=== PATIENT | female | born 1945 | race Caucasian/White ===

== ENCOUNTER 2018-02-14 08:36 | Observation (INO) | payer OTHER ==
[2018-02-14] VITALS (15 sets, daily range): BP systolic 96–166; BP diastolic 58–70
[~2018-02-14] VITALS: Ht 167.6 cm; Wt 97.5 kg
[~2018-02-14 08:36] MED LIST: ALEVE220 MG PO; APAP650 PO; ASPIRIN325 PO; CENTRUM SILVER1 EAC4 PO; COLACE100 MG PO; FERRO-TIME325 MG PO; GEMFIBROZIL 60600 M1 PO; HYDROCODON-ACE1 EAC2 PO; HYDROCODONE-APA1 TA1 PO; IBUPROFEN 200200 M1 PO; LEVOTHYROXIN0.088 MG PO; LEVOXYL88 MCG PO; LISINOPRIL40 MG PO; LOPID600 MG PO; LOPRESSOR50 PO; LOSARTAN-HCTZ1 EAC1 PO; METAMUCIL PAC1 UDPKT PO; MOM PO; Metoprolol Tartrate PO; NEURONTIN 300300 M1 PO; NORVASC 5 MG TAB5 MG PO; NORVASC5 MG PO; ONE-A-DAY WOMENS PO; OXYCODONE20 MG/1 M1 PO; PAIN RELIEF PM1 EAC2 PO; PRINIVIL40 MG PO; PROTONIX40 M1 PO; TRAMADOL-ACETA1 EACH PO; ULTRACET TABLET1 TAB PO; XARELTO10 M1 PO
[2018-02-14 09:10] LABS: HEMATOCRIT 37.4 % (37.0-47.0); HEMOGLOBIN 12.8 gm/dL (12.0-15.0); MCH 30.7 pg (26.0-34.0); MCHC 34.2 g/dL (28.0-37.0); MCV 89.9 fL (80.0-100.0); RBC 4.16 mil/uL (4.20-5.00); RDW-CV 13.2 % (10.5-14.5); WBC 6.8 thou/uL (4.0-11.0)
[2018-02-14] MEDS ORDERED: NITROGLYCERIN0.4 MG SUBLING (09:13)
[2018-02-14 09:23] LABS: ANION GAP 7 mmol/L (7-16); BUN 24 mg/dL (7-18); CHLORIDE 105 mmol/L (98-107); CO2 27 mmol/L (21-32); CREATININE 1.5 mg/dL (0.6-1.3); GLUCOSE 104 mg/dL (70-99); POTASSIUM 4.1 mmol/L (3.5-5.1); SODIUM 139 mmol/L (136-145)
[2018-02-14 09:24] LABS: APTT 25.8 Seconds (25.0-31.3); INR 1.1; PROTIME 10.8 Seconds (9.20-11.50)
[2018-02-14 09:27] LABS: ALKALINE PHOSPHATASE 79 U/L (46-116); CHOLESTEROL 151 mg/dL (<200); HDL CHOLESTEROL 29 mg/dL (>40); LDL CHOLESTEROL 49 mg/dL (<100); SERUM ASSESSMENT Clear; SGOT 21 U/L (15-37); SGPT 27 U/L (30-65); TC:HDL 5.2 Ratio (Not establshd); TOTAL BILIRUBIN 0.4 mg/dL (<0.1-1.0); TRIGLYCERIDE 365 mg/dL (<150); VLDL 73 mg/dL (<40)
--- NOTE | 2018-02-14 13:47 | EKG ---
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 : 1945 Requested By: Issa Hoff Order Number: [id number] Reading MD: Issa Hoff Measurements Intervals [place] Rate: 54 P: 28 UT: 211 QRS: 16 QRSD: 99 T: 63 QT: 473 QTc: 449 Interpretive Statements Sinus rhythm Abnormal inferior Q waves Minimal ST depression, lateral leads Compared to ECG 12/11/2013 19:54:03 Inferior Q waves now present Q waves now present Possible ischemia no longer present ST (T wave) deviation still present Electronically Signed On 02-14-2018 13:47:27 BALING MACHINE TENDER by Issa Hoff [email or web address] <ELECTRONICALLY SIGNED> By: Issa Hoff MD, [facility] 02/14/18 1347 2 Issa Hoff MD, [facility] /EPI
--- NOTE | 2018-02-14 15:03 | EKG ---
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: : 1945 Requested By: Issa Hoff Order Number: [id number] Reading MD: Issa Hoff Measurements Intervals [place] Rate: 58 P: 36 OR: 204 QRS: 41 QRSD: 101 T: 71 QT: 462 QTc: 454 Interpretive Statements Sinus rhythm Probable inferior infarct, old Compared to ECG 02/14/2018 09:13:17 Myocardial infarct finding now present Inferior Q waves no longer present Q waves no longer present ST (T wave) deviation no longer present Electronically Signed On 02-14-2018 15:02:59 C S S REPRESENTATIVE by Issa Hoff [email or web address] <ELECTRONICALLY SIGNED> By: Issa Hoff MD, FACC 02/14/18 1502 1428 1428 Issa Hoff MD, FACC /EPI
--- NOTE | 2018-02-14 16:02 | NUR ---
vss, assumed care OF PT FROM TREATING PLANT SUPERVISOR, ASSSESSMENT PERFORMED AND CHARTED, FALL PRECAUTIONS IN PLACE, RIGHT GRION CATH SITE IS C/D/I PT HAS BEEN INSTRUCTED TO LIMIT MOVEMENT, PT IS A&O4, UP AD OMAR AT 1700 PT IS ON 2L NC, TRACING SR. DENIES ANY PAIN, PT GOAL IS SAFETY, WILL FOLLOW WITH PLAN OF CARE.
--- NOTE | 2018-02-14 18:41 | CARD ---
[address] [address] CARDIAC CATH REPORT Name: JUAN MANUEL MCGOWAN Room: [address] MAideeRAidee#: [id number] Admission: 02/14/18 Attend Phys: Issa Hoff MD Discharge: Date of : 49 Report #: [id number] THIS REPORT FOR: //name// APPROVED REPORT Study performed: 02/14/2018 09:08:49 Patient Details Patient Status: Out-Patient Room #: The patient is a 72 year-old female Event Personnel Issa Hoff Weight Checker, Charleen Germain RN Avid Editor, Venu Wang (R) Monitor, Cris Moore RTR Scrub Procedures Performed cath pci Indication Chest pain Risk Factors Arterial Hypertension, Hypercholesterolemia, Coronary Artery Disease Previous Procedures/Diagnoses Previous CABG Admission/Lab Medications/Medications given during procedure Glycoprotein IllbIlla Inhibitors, Heparin Unfract. Procedure Narrative The patient was brought electively to the Cardiac Catheterization Laboratory and was prepped and draped in a sterile manner. The right femoral was infiltrated with 1% Lidocaine subcutaneous anesthesia. A [place] 6 FR sheath was inserted into the right femoral artery. Coronary angiography was performed using coronary diagnostic catheters. The right coronary system was accessed and visualized with a Diagnostic - JR4 catheter. The left coronary system was accessed and visualized with a Diagnostic - JL4 catheter. The left ventricle was accessed and visualized with a diagnostic catheter catheter. Left ventricular/Aortic Valve gradient assessed via catheter pullback. An aortogram of the ascending aorta was performed. Closure device was [facility] [address] [place] [address] CARDIAC CATH REPORT Name: ROSLYNJUAN MANUEL M Room: [address] Gifyt Villasenor#: [id number] Admission: 02/14/18 Attend Phys: Issa Hoff MD Discharge: Date of : 49 Report #: [id number] deployed with a 6 Fr Angioseal. The patient tolerated the procedure well and there were no complications associated with the procedure. There was no hematoma. SVG INJECTED WITH A JR4 BRIDGETT INJECTED WITH A RCB AORTAGRAM PERFORMED SVG INJECTED WITH A 3DRC Intraoperative Conscious Sedation Sedation start time: 1047 Case end Time: 1218 Fentanyl 25 mcg Versed 2 mg Fluoro Time: 21.7 minutes Dose: DAP 708933 cGycm2 2428 mGy Contrast Type and Amount: Visipaque 340 ml Coronary Angiography The patient's coronary anatomy is right dominant. [place] Artery Percent Stenosis Grafts (Complete if Previous CABG=Yes: Percent Stenosis) SANCHEZ to LAD widely patent , no disease SVG to Diag- proximal 90% stenosis within body of svg SVG to OM , focal , napkin ring 95-99% stenosis SVG to RCA was not able to be engaged, root aortogram shows no patent graft to RCA Diagnostic Cath Left Main 20% distal taper LAD occluded mid body, with severe disease proximal portion , serial 70% x2 Diagonal 1 small to medium sized proximal 90% Circumflex occluded proximally Right Coronary occluded after acute marginal R PDA fills with collaterals from left, small vessel Left Ventriculography Left Ventriculography was not performed. There is a peak to peak gradient of 7-10 mmHg at most , compatible with known mild aortic stenosis EDP was 15mmHg Hemodynamics The aortic pressure is 120/45 mmHg with a mean of 76 mmHg. The left ventricular pressure is 175/10 mmHg with a mean of mmHg. The left ventricular end diastolic pressure is 15 mmHg. Pullback from the left ventricle to the aorta revealed a 10 mm gradient [place] [address] CARDIAC CATH REPORT Name: LASHONDAJUAN MANUEL SALAZAR Marivel Room: [address] [place]#: [id number] Admission: 02/14/18 Attend Phys: Issa Hoff MD Discharge: Date of : 49 Report #: [id number] PCI Technique Lesion Anticoagulation was achieved with Heparin. bolus of iv aggrastat given Patient was preloaded with Plavix. Percutaneous coronary intervention was performed on the svg to the diagonal artery. The lesion stenosis prior to intervention was 95% with JESUS 3 flow. A JR4 Guide Catheter was used to engage the svg ostium. A BMW 190CM Interventional Guidewire was used to cross the lesion. STENT DEPLOYMENT A drug-eluting stent LAZARO RX 2.75 X 15 was inserted and inflated up to 12.00atm for 18seconds. Repeat angiography revealed the following post-stent deployment results: 0% stenosis. Additional Inflation: 18.00atm for 15seconds. Additional Inflation: 22.00atm for 21seconds. Final angiography reveals 0 % stenosis with JESUS 3 flow. PCI Technique Lesion 2 Percutaneous Coronary Intervention was performed on the svg to the distal marginal branch of the circumflex. Patient was preloaded with Plavix. Percutaneous coronary intervention was performed on the svg to the marginal artery. The lesion stenosis prior to intervention was 90% with JESUS 3 flow. A 6 fr jr4 Guide Catheter was used to engage the svg ostium. A bmw Interventional Guidewire was used to cross the lesion. Stent Deployment A drug-eluting stent LAZARO RX 4.0 X 12 was inserted and inflated up to 12atm for 16seconds. Repeat angiography revealed the following post-stent deployment results: 0% stenosis. Additional Inflation: 15atm for 18seconds. Additional Inflation: 17atm for 19seconds. Final angiography reveals 0 % stenosis with JESUS 3 flow. Conclusion 1. chronic occlusion of the lad, circumflex, and rca 2. patent sanchez graft to the lad 3. 95% proximal stenosis in the svg to the diagonal artery 4. 90% distal stenosis in the svg to the marginal artery 5. successful placement of drug eluting stents in both svg's Recommendations Cardiac Rehabilitation Referral [facility] [place] [address] CARDIAC CATH REPORT Name: JUAN MANUEL MCGOWAN Marivel Room: [address] Gifty Villasenor#: [id number] Admission: 02/14/18 Attend Phys: Issa Hoff MD Discharge: Date of : 49 Report #: [id number] Medications Administered Clopidogrel Diagnostic Cath Approved by: Issa Hoff MD Date/Time: <ELECTRONICALLY SIGNED> By: Emory Cook MD, FACC 02/14/18 1841 184 1841Dshreya Cook MD, FACC /INF
[2018-02-15 00:19] VITALS: BP 120/52
[2018-02-15 04:38] VITALS: BP 136/47
[2018-02-15 05:13] LABS: HEMATOCRIT 31.6 % (37.0-47.0); MCHC 34.7 g/dL (28.0-37.0); MCV 89.4 fL (80.0-100.0); MPV 8.6 fl. (7.2-11.1); RBC 3.54 mil/uL (4.20-5.00); RDW-CV 13.1 % (10.5-14.5); WBC 5.9 thou/uL (4.0-11.0)
--- NOTE | 2018-02-15 05:15 | NUR ---
ASSUMED PT CARE AT 1930, PT IS A&OX4, PT IS POST CATH, RIGHT GROIN CATH SITE IS CDI. PT IS TRACING NSR ON THE MONITOR, ON RA SATTING MID TO HIGH 90'S. PT IS UP AD OMAR IN HER ROOM AND APPEARS STABLE ON HER FEET. BED IN LOW POSIITON, CALL LIGHT IN REACH, HOURLY ROUNDING COMPLETED FOR PT SAFETY.
[2018-02-15 05:38] LABS: CREATININE 1.4 mg/dL (0.6-1.3); TROPONIN-I LEVEL 0.21 ng/mL (<0.06)
[2018-02-15 08:29] VITALS: BP 129/54
[2018-02-15 09:48] VITALS: BP 137/68
[2018-02-15 11:06] VITALS: BP 137/68
[2018-02-15] MEDS ORDERED: ASPIR 8181 MG PO (13:22)
[2018-02-15] MEDS ORDERED: PLAVIX 75 MG TA75 M1 PO (13:25)
[2018-02-15 13:31] VITALS: BP 137/68
--- NOTE | 2018-02-15 13:52 | EKG ---
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: : 1945 Requested By: Issa Hoff Order Number: [id number] Reading MD: Emory Cook Measurements Intervals [place] Rate: 67 P: 37 HI: 178 QRS: 35 QRSD: 100 T: 79 QT: 444 QTc: 469 Interpretive Statements Sinus rhythm nonspecific st changes Probable inferior infarct, old Compared to ECG 02/14/2018 14:28:53 No significant changes Electronically Signed On 02-15-2018 13:52:07 AUTOMATIC DRILL OPERATOR by Emory Cook [email or web address] <ELECTRONICALLY SIGNED> By: Emory Cook MD, [facility] 02/15/18 9522 0903 09 Emory Cook MD, [facility] /EPI
--- NOTE | 2018-02-15 14:58 | NUR ---
VSS, ASSUMED CARE THIS AM, ASSESSMENT PERFORMED AND CHARTED, FALL PRECAUTIONS IN PLACE AND CALL LIGHT IN REACH, PT IS A&O4, UP AD OMAR, ON RA TRACING SR ON THE MOITOR, PT GOAL IS TO D/C I HAVE BEEN GIVEN D/C ORDERS GAVE SCRIPT AND PROVITED D/C PAPERS AND INSTRUCTIONS CATH SIT IS C/D/I AND IV TANKE OUT TELE MONITOR TAKEN OFF, PT WALKED OUT TO CAR WITH DTR, HOURLY ROUNDS COMPLETED.
== END 2018-02-15 13:45 | disposition home or self-care (01) ==
LOC: M.CL 08:36 → M.2W 13:49 → M.TBA-CV 13:49 → M.2W 14:09
PROVIDERS: ADMIT Internal Medicine Cardiovascular Disease
DX: I25.10 Atherosclerotic heart disease of native coronary artery without angina pectoris (principal); I65.23 Occlusion and stenosis of bilateral carotid arteries; I35.8 Other nonrheumatic aortic valve disorders; M54.12 Radiculopathy, cervical region; I10 Essential (primary) hypertension; K21.9 Gastro-esophageal reflux disease without esophagitis; E78.00 Pure hypercholesterolemia, unspecified; I21.4 Non-ST elevation (NSTEMI) myocardial infarction; Z87.891 Personal history of nicotine dependence; Z79.82 Long term (current) use of aspirin; Z95.5 Presence of coronary angioplasty implant and graft; Z79.899 Other long term (current) drug therapy

== ENCOUNTER 2021-01-21 11:01 | Observation (INO) | payer OTHER ==
[~2021-01-21] VITALS: Ht 167.6 cm; Wt 82.2 kg
--- NOTE | ~2021-01-21 | H ---
[address] [address] HISTORY AND PHYSICAL Name: JUAN MANUEL MCGOWAN Room: [address] Gifty M.R.#: [id number] Admission: 01/21/21 Attend Phys: Emory Cook MD, F Discharge: 01/22/21 Date of : 49 Report #: [id number] THIS REPORT FOR: cc: Venu Coburn MD, Anthony MD [facility],Medical Records Staff ~ Please refer to the History and Physical performed in the physician's office. By: 0700Medical Records Staff [facility] /AMPARO
[~2021-01-21 11:01] MED LIST changes: +ASPIR 8181 MG PO; +CRESTOR10 MG PO; +NEURONTIN300 MG PO; +NITROGLYCERIN0.4 MG SUBLING; +NORCO5 PO; +PLAVIX 75 MG TA75 M1 PO; +TRAMADOL 50 MG50 MG PO
[2021-01-21 11:45] LABS: HEMATOCRIT 35.2 % (37.0-47.0); HEMOGLOBIN 11.9 gm/dL (12.0-15.0); MCH 29.2 pg (26.0-34.0); MCHC 33.9 g/dL (28.0-37.0); MPV 7.9 fl. (7.2-11.1); RBC 4.1 mil/uL (4.20-5.00); RDW-CV 13.1 % (10.5-14.5); WBC 6.1 thou/uL (4.0-11.0)
[2021-01-21 11:56] VITALS: BP 108/47
[2021-01-21 11:57] LABS: APTT 26.8 Seconds (25.0-31.3); INR 1.1; PROTIME 10.9 Seconds (9.20-11.50)
[2021-01-21 12:00] LABS: ANION GAP 8 mmol/L (7-16); BUN 26 mg/dL (7-18); CALCIUM 9.7 mg/dL (8.5-10.1); CHLORIDE 102 mmol/L (98-107); CO2 27 mmol/L (21-32); CREATININE 1.2 mg/dL (0.6-1.3); GLUCOSE 101 mg/dL (70-99); POTASSIUM 3.7 mmol/L (3.5-5.1); SODIUM 137 mmol/L (136-145)
[2021-01-21 12:02] VITALS: BP 114/58
[2021-01-21 12:05] LABS: ALBUMIN 3.9 g/dL (3.4-5.0); ALKALINE PHOSPHATASE 74 U/L (46-116); CHOLESTEROL 196 mg/dL (<200); HDL CHOLESTEROL 37 mg/dL (>40); LDL CHOLESTEROL 134 mg/dL (<100); SGOT 23 U/L (15-37); SGPT 18 U/L (30-65); TC:HDL 5.3 Ratio (Not establshd); TOTAL BILIRUBIN 0.5 mg/dL (<0.1-1.0); TOTAL PROTEIN 8.1 g/dL (6.4-8.2); TRIGLYCERIDE 129 mg/dL (<150); VLDL 26 mg/dL (<40)
[2021-01-21 12:06] LABS: SERUM ASSESSMENT Clear
[2021-01-21 15:43] LABS: BE -0.7 mmol/L (-2 to +3); PCO2 49.1 mmHg (35.0-45.0); pH 7.336 (7.340-7.450)
[2021-01-21 15:45] LABS: PO2 39.9 mmHg (75.0-100.0)
[2021-01-21 15:50] LABS: BE -3.7 mmol/L (-2 to +3); PCO2 VENOUS 41.5 mmHg (41.0-51.0); PO2 VENOUS 66.5 mmHg (35.0-45.0)
[2021-01-21 17:50] VITALS: BP 108/47
--- NOTE | 2021-01-21 19:08 | EKG ---
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: : 1945 Requested By: Emory Cook Order Number: [id number] Reading MD: Emory Cook Measurements Intervals [place] Rate: 47 P: 32 GA: 194 QRS: 28 QRSD: 100 T: 67 QT: 467 QTc: 413 Interpretive Statements Sinus bradycardia Probable inferior infarct, old Abnormal T, consider ischemia, anterior leads Compared to ECG 02/15/2018 09:03:13 Sinus rhythm no longer present Myocardial infarct finding still present Electronically Signed On 01-21-2021 19:07:57 TRUCK SALES REPRESENTATIVE by Emory Cook [email or web address] <ELECTRONICALLY SIGNED> By: Emory Cook MD, FACC 01/21/21 1907 1146 1146 Emory Cook MD, FAC /EPI
[2021-01-21 19:09] VITALS: BP 130/58
--- NOTE | 2021-01-21 19:13 | EKG ---
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 /EPI
--- NOTE | 2021-01-21 19:36 | CARD ---
[address] [address] CARDIAC CATH REPORT Name: JUAN MANUEL MCGOWAN Room: [address] M.R.#: [id number] Admission: 01/21/21 Attend Phys: Emory Cook MD, F Discharge: Date of : 49 Report #: [id number] THIS REPORT FOR: cc: Venu Coburn MD, Anthony MD Blick, David R. MD [facility] ~ APPROVED REPORT Study performed: 01/21/2021 14:15:49 Patient Details Patient Status: Out-Patient Room #: The patient is a 75 year-old female Event Personnel Emory Cook Pegger, Lidia Tamez RN RN, Jesus Alvarado RTR Monitor, Bhavana Cruz RTR ScrubAlexandro Janel RN chopping machine operator Performed Art Access - R femoral artery* Steven Access - R femoral vein Right and Left Heart Cath Lt Vent/Cors/Grafts [id number] RLLVCORCAB Hemostasis w/ Angioseal , Coronary Angiography with grafts, Left Heart Catheterization, aortic root injection, and stent placement Indication Dyspnea, Valvular heart disease, Chest pain Risk Factors Hypercholesterolemia, Coronary Artery DiseaseHypertension Previous Procedures/Diagnoses Previous CABGPrevious PCI Admission/Lab Medications/Medications given during procedure Glycoprotein IllbIlla Inhibitors, Heparin Unfract. Procedure Narrative The patient was brought electively to the Cardiac Catheterization Laboratory and was prepped and draped in a sterile manner. The right femoral was infiltrated with 2% Lidocaine subcutaneous anesthesia. A Right Heart Catheterization was performed with a 6 [place] [address] CARDIAC CATH REPORT Name: JUAN MANUEL MCGOWAN Room: [address] Gifty Villasenor#: [id number] Admission: 01/21/21 Attend Phys: Emory Cook MD, F Discharge: Date of : 49 Report #: [id number] catheter and pressure were recorded. Cardiac outputs were obtained by the Destiny and Thermal Dilution method. A 7Fr x 11cm Katal[place] sheath was inserted into the right femoral artery. Coronary angiography was performed using coronary diagnostic catheters. The right coronary system was accessed and visualized with a Diagnostic JR4 catheter. The left coronary system was accessed and visualized with a Diagnostic JL4 catheter. The left ventricle was accessed and visualized with a Diagnostic PIGTAIL catheter. Left ventricular/Aortic Valve gradient assessed via simultaneous left ventricle and right femoral artery pressurevia simultaneous left ventricle and right femoral artery pressure. Left ventriculogram was performed in RAINES projection. An aortogram of the ascending aorta was performed. Closure device was deployed with a 6 Fr Angioseal. Hemostasis was obtained with manual pressure following sheath removal without any complications. The patient tolerated the procedure well and there were no complications associated with the procedure. There was no hematoma. 7 kiswahili venous sheath was placed in the right femoral vein. [place] Steven catheter was inserted into the pulmonary artery. Sheath was removed at the end of the procedure and hemostasis achieved by manual pressure. Intraoperative Conscious Sedation Sedation start time: 2:25 Case end Time: 4:22 Fentanyl 25 mcg Versed 2 mg Fluoro Time: 10.1 minutes Dose: DAP 90420 cGycm2 1508 mGy Contrast Type and Amount: Visipaque 170 mL Coronary Angiography The patient's coronary anatomy is right dominant. [place] Artery Percent Stenosis Grafts (Complete if Previous CABG=Yes: Percent Stenosis) SANCHEZ graft was visualized with a SANCHEZ catheter and demonstrated 0% stenosis with flow into the mid LAD. SVG to the diagonal artery had a proximal stent that had a proximal 90% stenosis and was visualized with a JR4 catheter. SVG to the marginal branch of the circumflex had a distal stent with 0% restenosis and filled the distal circumflex artery and was visualized with a JR4 catheter. Diagnostic Cath Left Main 50% distal stenosis. LAD 100% chronically occluded [place] [address] CARDIAC CATH REPORT Name: JUAN MANUEL MCGOWAN Room: [address] M.R.#: [id number] Admission: 01/21/21 Attend Phys: Emory Cook MD, F Discharge: Date of : 49 Report #: [id number] branch. Circumflex 100% chronically occluded after a small first marginal branch Right Coronary 100% chronically occluded proximally and filled distally by both antegrade collaterals and retrograde by collateral from the LAD. Left Ventriculography The left ventricular ejection fraction is estimated to be 60-65%. Left ventricular wall motion abnormalities are not present. There is no mitral insufficiency. Aortic root injection appearred to show no additional SVG's and no aortic insufficiency. Hemodynamics The right atrial mean pressure is 1 mmHg. The right ventricular pressure is 30/2 mmHg. The pulmonary artery pressure is 28/2 mmHg with a mean of 11 mmHg. The mean pulmonary capillary wedge pressure is 4 mmHg. The aortic pressure is 105/38 mmHg with a mean of 62 mmHg. The left ventricular pressure is 164/3 mmHg with a mean of mmHg. The left ventricular end diastolic pressure is 12 mmHg. Pullback from the left ventricle to the aorta revealed a 50 mm gradient across the aortic valve. PaO2 saturation is 70.30 %. Arterial saturation is 90.80 %. The cardiac output and index were assessed using thermodilution. The cardiac output using thermo method is 5.50 L/min. The peak gradient across the aortic valve is 50 mmHg. The aortic valve area is 0.78 cm2. PCI Technique Lesion Anticoagulation was achieved with Heparin. bolus of iv aggrastat given Percutaneous coronary intervention was performed on the Ostium OF SVG GRAFT to the Diagonal 1. The lesion stenosis prior to intervention was 90% with JESUS 3 flow. A JR4 6fr Guide Catheter was used to engage the svg ostium. A IG: BMW 190cm Interventional Guidewire was used to cross the lesion. BALLOON DILATION A Balloon catheter Trek RX 2.5 X 8 was inserted and inflated up to 12.00atm for 7seconds. Repeat angiography revealed the following post-dilatation results: 30% stenosis. Additional Inflation: 24.00atm for 18seconds. STENT DEPLOYMENT A drug-eluting stent Xience Alpine RX 2.75X12 was inserted and inflated up to 22.00atm for 18seconds. Repeat angiography revealed the following post-stent deployment results: 0% stenosis. Additional [facility] [address] [facility] [address] CARDIAC CATH REPORT Name: JUAN MANUEL MCGOWAN Room: [address] Gifty MadisonAidee#: [id number] Admission: 01/21/21 Attend Phys: Emory Cook MD, F Discharge: Date of : 49 Report #: [id number] Inflation: 22.00atm for 9seconds. Final angiography reveals 0 % stenosis with JESUS 3 flow. Conclusion 1. Chronic occlusion of the LAD, circumflex, and RCA. 2. Patent SVG to the diagonal artery with an ostial stent that had a proximal 90% restenosis. 3. Patent SVG to the marginal branch of the circumflex with a patent distal stent. 4. Patient SANCHEZ graft to the LAD. 5. LVEF 60-65% 6. Severe aortic stenosis with a valve area of 0.78 cm2 7. successful placement of a drug eluting stent in the ostium of the SVG to the circumflex artery. Recommendations Refer for TAVR Medications Administered Clopidogrel <ELECTRONICALLY SIGNED> By: Emory Cook MD, [facility] 01/21/211935 35 35Emory Cook MD, FACC /INF
--- NOTE | 2021-01-21 20:01 | NUR ---
PT. ADMITTED TO FLOOR POST CATH AROUND 1800. R GROIN SITE. NO HEMATOMA OR CURRENT BLEEDING NOTED. BILAT PEDAL PULSES 2+. EDUCATED PT TO REMAIN IN BED, WITHOUT MOVEMENT TO RLE UNTIL 2100, PT AND DAUGHTER VERBALIZED UNDERSTANDING. DOCUMENTED VS STABLE, SB ON MONITOR. CALL LIGHT AND PERSONAL BELONGINGS PLACED WITHIN REACH. PT. VOIDED BY BEDPAN. PT IN BED, DAUGHTER AT BEDSIDE AT SHIFT CHANGE.
[2021-01-21 20:14] VITALS: BP 141/59
[2021-01-22] VITALS: BP 125/53
[2021-01-22 04:00] VITALS: BP 108/57
[2021-01-22 04:53] LABS: HEMATOCRIT 33.1 % (37.0-47.0); HEMOGLOBIN 11.4 gm/dL (12.0-15.0); MCH 29.6 pg (26.0-34.0); MCHC 34.4 g/dL (28.0-37.0); MCV 85.9 fL (80.0-100.0); MPV 7.7 fl. (7.2-11.1); RBC 3.85 mil/uL (4.20-5.00); WBC 6.7 thou/uL (4.0-11.0)
[2021-01-22 05:12] LABS: CALCIUM 8.7 mg/dL (8.5-10.1); CREATININE 1.1 mg/dL (0.6-1.3); POTASSIUM 3.6 mmol/L (3.5-5.1)
[2021-01-22] MEDS ORDERED: NITROGLYCERIN0.4 MG SUBLING (08:35)
[2021-01-22] MEDS ORDERED: LOPRESSOR50 PO (08:36)
[2021-01-22] MEDS ORDERED: CLOPIDOGREL75 MG PO (08:38)
--- NOTE | 2021-01-22 09:02 | NUR ---
PT IS ABLE TO COMMUNICATE HER NEEDS TO STAFF EFFECTIVELY. CURRENT PAIN MEDICATION REGIMEN HAS BEEN ADEQAUTE FOR CONTROLLING HER PAIN UP TO THIS TIME. SOME PAIN AND BLEEDING OVERNIGHT AT HER CATH SITES; CARDIOLOGY MD PAGED AND ORDERS RECEIVED. LIKELY DISCHARGE TODAY.
[2021-01-22 11:16] VITALS: BP 98/35
--- NOTE | 2021-01-22 17:10 | NUR ---
PT. R GROIN SITE INTACT, NO FRESH DRAINAGE NOTED. BLE PEDAL PULSE UNIFORM AND 2+, SENSATION INTACT. DISCHAGE PACKET PROVIDED TO PT., EXPLAINED. PT VERBALIZED UNDERSTANDING. EXPLAINED TO KEEP EXISTING DRESSING ON UNTIL TOMORROW OR WHEN DRAINAGE STOPS. ADDITIONAL TEGADERM AND GAUZE PROVIDED, IF NEEDED. PT LEFT WITH SON BY WHEELCHAIR, IN STABLE CONDITION.
--- NOTE | 2021-01-24 11:47 | D ---
[address] [address] DISCHARGE SUMMARY Name: JUAN MANUEL MCGOWAN Room: [address] Gifty Villasenor#: [id number] Admission: 01/21/21 Attend Phys: Emory Cook MD, F Discharge: 01/22/21 Date of : 49 Report #: [id number] THIS REPORT FOR: cc: Venu Coburn MD,Venu Cook,Emory Whitney MD [facility] ~ cc: Venu Coburn MD DATE OF DISCHARGE: 01/22/2021 DISCHARGE DIAGNOSES: 1. Crescendo angina. 2. Coronary artery disease. 3. Severe aortic stenosis. 4. Carotid artery stenosis. 5. Hypertension. 6. Hyperlipidemia. CONSULTANTS: None. PROCEDURES: Right and left heart catheterization with placement of a drug-eluting stent in the vein graft to the diagonal artery via the femoral approach. HISTORY OF PRESENT ILLNESS: The patient is a 75-year-old white female who was brought to the outpatient department for repeat cardiac catheterization. The patient had previous 4-vessel bypass surgery at [facility] in 2000. In 2018, I placed drug-eluting stents in the vein graft to the circumflex and vein graft to the diagonal artery. She has a history of aortic stenosis. Recently, she complained of exertional chest tightness and dyspnea on exertion. She had no syncope. I saw her in the office on 01/11 and recommended repeat cardiac catheterization. Echocardiogram in October showed an ejection fraction of 60% with evidence of severe aortic stenosis. Carotid Doppler study in October showed a 70%-90% stenosis, left internal carotid artery. I recommended repeat cardiac catheterization for consideration of TAVR. Her past medical history otherwise is significant for hypertension, hyperlipidemia. She had no history of diabetes. CURRENT MEDICATIONS: Include amlodipine, aspirin, gemfibrozil, Synthroid, Hyzaar, metoprolol, Crestor, which she only took once a week. PHYSICAL EXAMINATION: VITAL SIGNS: Physical exam revealed blood pressure of 150/90, pulse was 54. CHEST: Clear to auscultation. CARDIAC: Regular rate and a grade 4 systolic ejection murmur. ABDOMEN: [place] [address] DISCHARGE SUMMARY Name: JUAN MANUEL MCGOWAN Room: [address]#: [id number] Admission: 01/21/21 Attend Phys: Emory Cook MD, F Discharge: 01/22/21 Date of : 49 Report #: [id number] EXTREMITIES: No edema. IMAGING DATA: Her ECG on admission showed a sinus bradycardia, nonspecific T-wave changes. LABORATORY DATA: Her lab work, creatinine 1.1. Liver function studies were normal. Cholesterol 196, triglyceride 129, HDL 37, LDL 134, hematocrit 35.2. HOSPITAL COURSE: The patient was brought to the outpatient department. I performed a right and left heart catheterization via the femoral approach. Results showed chronic occlusion of her LAD, circumflex and right coronary artery. There was a patent SANCHEZ graft to the LAD. The distal right coronary filled by collaterals. The vein graft to the diagonal artery had an ostial stent that had an ostial 90% restenosis. The vein graft to the circumflex artery had a stent and had no restenosis. Ejection fraction of 60-65%. There was evidence of severe aortic stenosis. Calculated aortic valve area of 0.78 cm2. She was noted to have a significant stenosis of the stent in the vein graft to the diagonal artery. She was then given Aggrastat and heparin. I placed a new drug-eluting stent in the vein graft, which she tolerated well. An Angio-Seal was placed in the right femoral artery. The sheath removed from the right femoral vein and hemostasis achieved with direct pressure. She had no further chest pain, shortness of breath or arrhythmias. She did have some oozing from the groin site and had prolonged bed rest. The following day, she was ambulating with no significant complaints. There is no hematoma in the groin. Followup ECG showed sinus bradycardia with no changes and T-wave inversions. Laboratory work the following day showed her creatinine remained stable at 1.1. Her high sensitivity troponin the following day was only 292. Her hematocrit the following day was 33.1. Prior to discharge, she was ambulating, had no further complaints. She was noted to be bradycardic. At time of discharge, her blood pressure 120/60, pulse is 60 and she was afebrile. She was discharged to continue her home medications that included Norvasc 10 mg a day for hypertension, aspirin 81 mg a day, gemfibrozil ____ twice a day for hypertriglyceridemia, Synthroid, losartan/HCT 100/25 a day, metoprolol was decreased from 50 to 25 mg twice a day because of bradycardia. She was to continue Crestor, which she can only take 10 mg once a week because of myalgias when she took it every day. I would consider increasing that to 3 times a week because of her elevated LDL. She was discharged to return to the care of Dr. Coburn for routine medical care. She is going to return to see my nurse practitioner in 2 weeks. She was given a prescription for Plavix 75 mg a day for 1 year following placement of drug-eluting stent. She was given a new nitroglycerin prescription to take as needed. She was to contact my office if she had recurrent chest pain, shortness of breath or syncope. She will be given a referral to [facility] for consideration of TAVR. She will be given copies of [facility] [address] [place] [address] DISCHARGE SUMMARY Name: JUAN MANUEL MCGOWAN Room: [address] Gifty Villasenor#: [id number] Admission: 01/21/21 Attend Phys: Emory Cook MD, F Discharge: 01/22/21 Date of : 49 Report #: [id number] her cardiac catheterization films as well as her echocardiogram done in October. Her prognosis is guarded due to her coronary artery disease and aortic stenosis. She was not to perform any physical activity until the valve is repaired. She was to contact my office if she had any symptoms of TIA. Because of the high-grade stenosis in her carotid artery she will be referred to Vascular Surgeon after her valve is replaced. <ELECTRONICALLY SIGNED> By: Emory Cook MD, FACC 01/24/21 1147 [id number] Cook MD, FACC /nt
--- NOTE | 2021-01-24 15:24 | EKG ---
[place] [address] ELECTROCARDIOGRAM REPORT Name: JUAN MANUEL MCGOWAN Room: [address] M.R.#: [id number] Admission: 01/21/21 Attend Phys: Emory Cook MD Discharge: 01/22/21 Date of : 49 Date of Service: 01/22/21 0429 Report #: [id number] THIS REPORT FOR: //name// [facility] Test Date: 2021-01-22 Test Time: 04:29:35 Pat Name: JUAN MANUEL MCGOWAN Department: Room: [address] Gender: F Manager Product Design: CAROLANN : 1945 Requested By: Emory Cook Order Number: [id number] Reading MD: Vicente Marie Measurements Intervals [place] Rate: 54 P: 36 [place]: 191 QRS: 17 QRSD: 127 T: 68 QT: 477 QTc: 453 Interpretive Statements Sinus rhythm Nonspecific intraventricular conduction delay Inferior infarct, old possible Compared to ECG 01/21/2021 17:04:10 Intraventricular conduction delay now present Myocardial infarct finding still present Electronically Signed On 01-24-2021 15:24:42 IMPLANT POLISHER by Vicente Marie [email or web address] <ELECTRONICALLY SIGNED> By: Vicente Marie MD, FACC 01/24/21 1524 0429 0429 Vicente Marie MD, FACC /EPI
--- NOTE | 2021-01-24 15:27 | EKG ---
[place] [address] ELECTROCARDIOGRAM REPORT Name: JUAN MANUEL MCGOWAN Room: [address] M.R.#: [id number] Admission: 01/21/21 Attend Phys: Emory Cook MD Discharge: 01/22/21 Date of : 49 Date of Service: 01/22/21 1154 Report #: [id number] THIS REPORT FOR: //name// [facility] Test Date: 2021-01-22 Test Time: 11:54:24 Pat Name: JUAN MANUEL MCGOWAN Department: Room: [address] Gender: F Tie Layer: VICKIE : 1945 Requested By: Emory Cook Order Number: [id number] Reading MD: Vicente Marie Measurements Intervals [place] Rate: 56 P: 38 AR: 201 QRS: 17 QRSD: 111 T: 70 QT: 466 QTc: 450 Interpretive Statements Sinus rhythm Probable inferior infarct, old Compared to ECG 01/21/2021 17:04:10 No significant changes Electronically Signed On 01-24-2021 15:27:17 GAS SCRUBBER OPERATOR by Vicente Marie [email or web address] <ELECTRONICALLY SIGNED> By: Vicente Marie MD, [facility] 01/24/21 1527 1154 1154 Vicente Marie MD, [facility] /EPI
== END 2021-01-22 12:35 | disposition home or self-care (01) ==
LOC: M.CL 11:01 → M.TBA-CV 16:02 → M.2W 18:13
PROVIDERS: ADMIT Internal Medicine Cardiovascular Disease; ATTEND Internal Medicine Cardiovascular Disease
DX: I25.118 Atherosclerotic heart disease of native coronary artery with other forms of angina pectoris (principal); Z20.822 Contact with and (suspected) exposure to COVID-19; I35.0 Nonrheumatic aortic (valve) stenosis; I65.29 Occlusion and stenosis of unspecified carotid artery; E78.5 Hyperlipidemia, unspecified; I10 Essential (primary) hypertension; Z79.82 Long term (current) use of aspirin; Z79.899 Other long term (current) drug therapy